=== PATIENT | male | born 1965 | race Hispanic/Latino ===

== ENCOUNTER → 2022-10-22 | Outpatient (CLI) | payer OTHER | END | disposition home or self-care (01) | LOC: RAH 09:45 | PROVIDERS: ATTEND Physical Medicine & Rehabilitation | DX: M54.2 Cervicalgia (principal); R29.2 Abnormal reflex | CPT/HCPCS: 72050; 72141 ==

== ENCOUNTER → 2022-11-16 | Outpatient (CLI) | payer OTHER | END | disposition home or self-care (01) | LOC: RAH 12:36 | PROVIDERS: ATTEND Physical Medicine & Rehabilitation | DX: R29.2 Abnormal reflex (principal) | CPT/HCPCS: 70551; 72146 ==